=== PATIENT | male | born 1950 | race Caucasian/White ===

== ENCOUNTER → 2018-08-06 | Day surgery (SDC) | payer BC ==
--- NOTE | 2018-07-28 12:19 | HP ---
CC: Dr. Andressa Boone * PREOPERATIVE HISTORY AND PHYSICAL: DATE OF ADMISSION: 08/06/18 This patient is scheduled for same day surgery admission by Dr. Santoyo on 08/06/18. DATE OF EXAMINATION: 07/28/18 This patient is scheduled for same day surgery admission by Dr. Santoyo on 08/06/18. ATTENDING SURGEON: Dr. Daron Santoyo * (dictated by Yany Rawls, Nurse Practitioner). CHIEF COMPLAINT: Right inguinal hernia. HISTORY OF PRESENT ILLNESS: The patient is a 67-year-old male recently evaluated by Dr. Santoyo for a right inguinal hernia. He reported a 2-month history of discomfort and states that he is more aware of the hernia bulging more regularly. He denies any signs or symptoms to suggest incarceration or strangulation; he denies any dysuria. He has a very active lifestyle as a harrington. Dr. Santoyo examined the patient and noted a large right inguinal hernia that is easily reducible. There was no evidence of a left inguinal hernia. Dr. Santoyo has recommended laparoscopic right inguinal hernia repair with mesh as a same day surgery procedure; he described the nature of the surgical procedure, the relevant risks and benefits and today I reviewed the expected postoperative care and recovery. The patient has had a chance to ask questions and stated that he understands the information and is satisfied with the answers given to his questions. He will sign surgical consent on the day of surgery. 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 PAST SURGICAL HISTORY: None. MEDICATIONS: 1. Cytomel 5 mcg p.o. 1 to 2 times daily. 2. Levothyroxine 88 mcg p.o. daily. 3. Humalog insulin 100 units/mL, 25 units per day via insulin pump and he also has the ability to adjust the dose with carbohydrate counting and he has an implanted blood sugar monitoring device as well. 4. Multivitamin p.o. daily. 5. Vitamin B complex p.o. daily. 6. Vitamin C plus 1000 mg 2 tablets daily. 7. Vitamin D 2000 International Units daily. 8. CoQ10 100 mg daily. ALLERGIES: No known drug allergies. FAMILY HISTORY: Father with a history of prostate cancer. Mother with a history of pacemaker. No known anesthesia complications, bleeding tendencies or clotting disorders. SOCIAL HISTORY: He is a harrington; he is . He quit smoking in 1978. He drinks 7 to 10 beers per week. REVIEW OF SYSTEMS: Constitutional: No fevers, chills, excessive fatigue or weight loss. Endocrine: He is a type 1 diabetic; he has an insulin pump and he also has an implantable blood sugar monitor; blood sugar runs between 80 and 120 typically; he is also treated for hypothyroidism. Hematologic: No easy bruising or bleeding. No history of blood transfusions. Respiratory: No dyspnea on exertion. No chronic cough. 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 Cardiovascular: No anginal chest pain or palpitations. In June 2017, he underwent a cardiac workup with Dr. Guzmán because he was having some dizziness and chest discomfort. He had a stress test, which revealed no ischemia. He had a Holter monitor, which did not reveal any symptomatic bradycardic events. Dr. Guzmán's note indicates that he has no acute active cardiac issues. Gastrointestinal: No nausea, vomiting, diarrhea, GI bleeding or constipation. Genitourinary: No dysuria. Musculoskeletal: No joint or back pain. Integumentary: No chronic rashes or skin changes. Neurologic: No headache or blurred vision. No dizziness. No areas of focal weakness or numbness. General: No history of deep vein thrombosis or pulmonary embolism. He states that he has received local anesthesia without any reactions. PHYSICAL EXAMINATION GENERAL SURVEY: The patient is a 67-year-old male well developed, well nourished, in no acute distress. VITAL SIGNS: Height 71.5 inches, weight 155 pounds, body mass index 21.3. Blood pressure 118/64, pulse 58 and regular, respiratory rate 16, temperature 96. SKIN: Warm, dry, intact. HEENT: Benign. NECK: Supple. No cervical lymphadenopathy. No thyromegaly. BACK: No CVA tenderness. LUNGS: Breath sounds bilaterally clear and equal. HEART: Regular rate and rhythm. No murmurs or rubs appreciated. ABDOMEN: Noted for insulin pump. Active bowel sounds, soft, nondistended, nontender throughout. No obvious masses. There is a small umbilical hernia defect with cough. No obvious organomegaly. Inguinal exam done by Dr. Santoyo revealed a large right inguinal hernia that is easily reducible. No evidence of left inguinal hernia. Testicles are normally descended without lesion. EXTREMITIES: Warm without edema or skin ulceration. RECTAL: Deferred. NEUROLOGIC: Alert and oriented x3, steady gait. IMPRESSION: Right inguinal hernia. PLAN/RECOMMENDATIONS: Same day surgery admission to Dr. Santoyo's service on 08/06/18 for laparoscopic right inguinal hernia repair with mesh. ADENIKE RAWLS, DIRECTOR OF FINANCE [id number]/[facility] #: [id number] ARLENE
[~2018-08-06] MED LIST: Acetaminophen TAB* 325 MG PO PRN; Buffered Lidocaine 0.9% SYRIN* 5 ML/SYR SYRINGE INTRADERM ONE; Bupivacaine 0.25% EPI 200,000* 30 ML SDV ONE; Dexamethasone IV* 4 MG/ML 1 ML (4 MG) ONE; DiMENhydriNATE IV* 50 MG/ML VIAL IV PUSH PRN; Famotidine IV* 10 MG/ML 2 ML (20 mg) IV ONE; Famotidine IV* 10 MG/ML 2 ML (20 mg) ONE; HYDROmorphone INJ1* 1 MG/ML SYRINGE IV PRN; Ketorolac INJ* 30 MG/ML 1 ML VIAL ONE; Lactated Ringers 1000 ML Bag* 1,000 ML IV SCH; Midazolam* 1 MG/ML 5 ML VIAL (5 MG) ONE; Naloxone* 0.4 MG/ML 1 ML VIAL IV PRN; Ondansetron INJ* 2 MG/ML VIAL ONE; Propofol* 10 MG/ML 20 ML BTL ONE; Rocuronium* 10 MG/ML VIAL ONE; Succinylcholine* 20 MG/ML 10 ML VIAL ONE; ceFAZolin 2 GM PREMIX in ORs 2 GM/50 ML BAG IVPB ONE; fentaNYL* 50 MCG/ML 2 ML VIAL (100 MCG VIAL) ONE; oxyCODONE TAB* 5 MG TAB PO PRN
[2018-08-06 09:37] VITALS: BP 134/76
--- NOTE | 2018-08-06 11:35 | OP ---
CC: Dr. Andressa Boone * DATE OF OPERATION: 08/06/18 - SDS DATE OF : 54 SURGEON: Daron Santoyo MD GOVERNMENT GAUGER: Theresa Arenas NP ANESTHESIOLOGIST: Dr. Bagley. ANESTHESIA: General. PRE-OP DIAGNOSIS: Right inguinal hernia. POST-OP DIAGNOSIS: Right inguinal hernia. OPERATIVE PROCEDURE: Laparoscopic right inguinal hernia repair with mesh. ESTIMATED BLOOD LOSS: Minimal. FLUIDS: Minimal crystalloid fluid given. SPECIMEN: None. DESCRIPTION OF PROCEDURE: The patient was identified in the preoperative area, marked, consent was signed. The patient was then taken to the operating room, placed on the operating room table in a supine position. Preoperative antibiotics were given. Sequential devices were placed on bilateral lower extremities. General anesthesia was induced. The patient's abdomen was clipped of hair and prepped and draped in the standard surgical fashion. A time-out was performed. An infraumbilical incision was made. This was deepened down to the rectus fascia on the right which was incised and entry into the preperitoneal plane was made. This was dissected with finger dissection and a 12-mm trocar was inserted through this. Laparoscope was inserted and blunt dissection was carried out down to the pubic symphysis. Two additional 5-mm trocars were then placed in the lower midline. Additional blunt dissection was carried out in the preperitoneal space to expose both left and right Ever's ligament. We next identified a small direct hernia. This was gently retracted until it was completely reduced. Next , we identified the epigastric vessel and maintained these anteriorly and opened up Bogros space laterally. Next, the peritoneum was bluntly dissected pushing this posterior as it extended towards the indirect space. Once this was reduced, we did notice a small rent in it proximally 2 mm, and this was closed up with two 5-mm clips. No significant pneumoperitoneum was identified. Next, a medium-sized right Bard 3DMax mesh was then inserted into the preperitoneal plane, allowed to unfurl intact to Ever's ligament on the right and also loosely laterally. The mesh was not taut or wrinkled. We then let the preperitoneal plane collapse and mesh was identified throughout this making sure that it stayed in the appropriate position covering the myopectineal orifice and the trocars were all removed under direct vision. Next, the anterior fascia at the umbilical port site was reapproximated with 0- Vicryl stitch in a [id number] fashion, and all 3 skin incisions were reapproximated with 4-0 Monocryl subcuticular sutures followed by Steri-Strips and sterile dressing. The patient tolerated the procedure well, was woken up and transferred to the PACU in stable condition. [id number]/[facility] #: [id number] ARLENE
== END | disposition home or self-care (01) ==
LOC: OR 05:28
PROVIDERS: ATTEND Surgery
DX: K40.90 Unilateral inguinal hernia, without obstruction or gangrene, not specified as recurrent (principal); E10.9 Type 1 diabetes mellitus without complications; Z79.4 Long term (current) use of insulin; Z96.41 Presence of insulin pump (external) (internal); E03.9 Hypothyroidism, unspecified; Z87.891 Personal history of nicotine dependence; I47.1 Supraventricular tachycardia; R00.1 Bradycardia, unspecified
CPT/HCPCS: C1781; J0330; J0690; J1100; J1885; J2250; J2405; J2704; J3010